=== PATIENT | male | born 1960 | race Caucasian/White ===

== ENCOUNTER → 2017-04-12 | Outpatient (CLI) | payer OTHER ==
[~2017-04-12] MED LIST: BACL10TA PO; DULO60CA6 PO; GABA800T2 PO; HYDR-2762 PO; MELO15TA23 PO; OMEP20CA9 PO; TRAM50TA PO
--- NOTE | 2017-04-12 18:03 | PAIN ---
DATE OF SERVICE: 04/12/2017 PROGRESS NOTE FOR PAIN CLINIC DIAGNOSIS: Chronic lumbar radiculopathy with post-lumbar laminectomy syndrome. HISTORY OF PRESENT ILLNESS: The patient is a 56-year-old male who returns for followup, last seen in 2010. The patient has a spinal cord stimulator, which was placed here in 2009. The patient has done very well with excellent coverage of stimulation in his low back and bilateral lower extremities, but the bench lathe operator battery is reaching its last charging abilities and having difficulty charging it. It is not holding the charge more than a day or so. We contacted the [employer] event marketing representative and she met him here as well today with some interrogation techniques with the stimulator ____ nearing its battery life expectancy. The patient reports he is still having some pain, but it is a 5 on a scale of 10 and at least 8 on a scale of 10. It is worse with walking and standing, change in positions. It is aching, sharp, dull, shooting, cramping, burning and tingling. It can be severe, but it is on and off. I again coverage with the stimulator by about 70% improvement with the stimulator on. The patient reports no new motor or sensory deficits, no new bowel or bladder incontinence or other complaints. PHYSICAL EXAMINATION: VITAL SIGNS: Today, his blood pressure is 141/68, pulse 76, respirations 18, temperature is 98.3 degrees Fahrenheit. Height is 5 feet 10 inches. GENERAL: The patient is awake, alert, oriented, appropriate, very pleasant demeanor. HEENT: Shows normocephalic, atraumatic. Extraocular movements are intact and symmetrical. The patient wears eye glasses. Oral cavity, mucous membranes are moist and pink. Dentition is intact. NECK: Shows anterior throat supple without palpable lymphadenopathy noted. Swallow reflex is symmetrical. CHEST: Shows normal on inspection. Breath sounds are clear bilaterally. HEART: Shows S1 and S2 clear. No murmurs auscultated. ABDOMEN: Soft, nontender, nondistended. BACK: Shows spine grossly in the midline. Well-healed surgical scar is noted in the lumbar distribution, some minor flattening of lumbar lordotic curvature, but normal thoracic kyphotic curvature. The patient has easily palpable stimulator over the left low back, but above the iliac crest on the left side, which is nontender to palpation. EXTREMITIES: Lower extremities show deep tendon reflexes at 1+ in the patellar and tendo calcaneus tendons. Motor exam is 5/5 with dorsiflexion and extension, quadriceps and hamstring flexion about 4 on a scale of 5, but symmetrical. The patient is walking with a walker, which he uses at all times by his report. Options were discussed with the patient. The patient's old chart was reviewed as is his current medication regimen and updated. Current review of systems updated today as well. We will schedule the patient for a replacement of the spinal cord stimulator battery with a new updated and better technology model with more options. Per [employer] event marketing representative, we will schedule this soon and have the patient follow up at that time for replacement of the spinal cord stimulator generator. SUE MORALES MD DR: KRYSTLE/reno JOB#: [id number] / [id number]
== END | disposition home or self-care (01) ==
LOC: PNCL 11:16
PROVIDERS: ATTEND Anesthesiology
DX: M96.1 Postlaminectomy syndrome, not elsewhere classified (principal); M54.16 Radiculopathy, lumbar region
CPT/HCPCS: 99212

== ENCOUNTER 2017-05-06 10:57 | Day surgery (SDC) | payer OTHER ==
[~2017-05-06] VITALS: Ht 177.8 cm; Wt 81.6 kg
[~2017-05-06 10:57] MED LIST changes: +HYDROmorphone 2 MG/ML VIAL IV PRN; +IV RINGERS,LACTATED 1000ML 1,000 ML IV SCH; +LIDOCAINE 1% PF 2 ML VIAL. ID PRN; +MORPHINE SULFATE 2 MG/ML DISP.SYRIN. IV PRN; +ONDANSETRON PF 4 MG/2 ML VIAL. IV PRN; +PROCHLORPERAZINE 10 MG/2 ML VIAL. IV PRN; +fentaNYL PF VIAL 100 MCG/2 ML VIAL IV PRN
[2017-05-06] MEDS ORDERED: FAMOTIDINE 20 MG/2 ML VIAL ONE (11:34)
[2017-05-06] MEDS ORDERED: ONDANSETRON PF 4 MG/2 ML VIAL. ONE (11:34)
[2017-05-06] MEDS ORDERED: PROPOFOL 20 ML IV ONE (11:34)
[2017-05-06] MEDS ORDERED: LIDOCAINE 2% PF Vial for OR 5 ML VIAL. ONE (11:34)
[2017-05-06] MEDS ORDERED: fentaNYL PF VIAL 100 MCG/2 ML VIAL ONE (11:36)
[2017-05-06] MEDS ORDERED: MIDAZOLAM HCL/PF 2 MG/2 ML VIAL. ONE (11:36)
[2017-05-06] MEDS ORDERED: PROPOFOL 50 ML IV ONE (12:21)
[2017-05-06] MEDS ORDERED: LIDOCAINE 1%/EPI 1:100,000 20 ML VIAL. ONE (12:29)
[2017-05-06] MEDS ORDERED: LIDOCAINE 1% 20 ML VIAL. ONE (12:29)
[2017-05-06] MEDS ORDERED: BUPIVACAINE-EPI 0.25%-1:200000 MPF 30 ML VIAL. ONE (12:29)
[2017-05-06] MEDS ORDERED: BUPIVAC MPF-EPI 0.5%-1:200000 10 ML VIAL. ONE (12:30)
[2017-05-06] MEDS ORDERED: SUCCINYLCHOLINE 200 MG/10 ML VIAL. ONE (12:34)
[2017-05-06] MEDS ORDERED: DEXAMETHASONE SOD PHOS 20 MG/5 ML VIAL. ONE (12:47)
[2017-05-06] MEDS ORDERED: BACITRACIN 50,000 UNIT VIAL. IRR ONE (12:52)
[2017-05-06] MEDS ORDERED: 0.9 % SODIUM CHLORIDE 50 ML VIAL. IJ ONE (12:52)
[2017-05-06] MEDS ORDERED: ePHEDrine PF IN SALINE 50 MG/5 ML DISP.SYRIN IV ONE (12:57)
[2017-05-06] MEDS ORDERED: VASOPRESSIN 20 UNIT/ML VIAL. ONE (13:09)
[2017-05-06] MEDS ORDERED: DESFLURANE 31 TO 60 MINUTES IH ONE (13:16)
--- NOTE | 2017-05-06 13:34 | DISCH ---
DISCHARGE INSTRUCTIONS Condition on Discharge Condition on Discharge: Stable Activity After Discharge Activity Instructions for Disc: Activity as tolerated Lifting Instructions after Dis: No heavy lifting Driving Instructions after Dis: Do not drive today Diet after Discharge Diet after Discharge: Regular Wound Incision Care Wound/Incision Care: Reinforce dressing PRN Contacting the DR. after DC Call your doctor for: Concerns you may have SUE MORALES MD May 06, 2017 13:34
[2017-05-06] MEDS ORDERED: HYDROcodone/APAP 7.5/325MG 1 TAB TABLET PO ONE (13:45)
--- NOTE | 2017-05-06 14:22 | OP ---
DATE OF SURGERY: 05/06/2017 PROCEDURE NOTE FOR PAIN CLINIC PREOPERATIVE DIAGNOSIS: Post-laminectomy syndrome with chronic lumbar radiculopathy. POSTOPERATIVE DIAGNOSIS: Post-laminectomy syndrome with chronic lumbar radiculopathy. PROCEDURE: Spinal cord stimulator generator battery removal and replacement. ANESTHESIA: General endotracheal. ESTIMATED BLOOD LOSS: Minimal. COMPLICATIONS: None. DESCRIPTION OF PROCEDURE: The patient was consented for procedure today with the risks discussed including, but not limited to bleeding, infection, possibility of poor results regarding the new spinal cord stimulator, rejection of the stimulator as well as poor stimulator coverage and poor pain control. The patient understands and wishes to proceed. The patient was taken to operating room #1 and general anesthesia was induced with all ASA standard monitors. The patient was placed in prone position with pressure points padded and breath sounds equal bilaterally. The patient was then prepped in sterile fashion, allowing 3 minutes for the prep to dry prior to proceeding and draping, then draped in the usual fashion in a sterile fashion. The patient's back was again examined. The left low lumbar distribution was easily palpable. Spinal cord stimulator battery and well-healed surgical scar in transverse direction was again identified. Using 1% lidocaine with 1:200,000 epinephrine, local anesthetic was instilled in a transverse fashion, just inferior approximately 1 cm to the previous scar. At this time, using a 15 blade scalpel, it was incised in a transverse fashion through the area of anesthetized skin to match the incision above at approximately 7 cm. The pocket was then exposed using blunt and dull dissection and the stimulator battery generator expressed from the pocket without difficulty. Pocket was inspected. No significant hemorrhaging was noted at this time. Using the [employer] stimulator tool package and screwdriver, the old generator was removed from the leads without difficulty, with the leads intact. The new generator was then identified and inspected and the leads were placed in the same configuration front to back on the new stimulator generator. Impedance was then checked with the [employer] credit representative present and found to be all well communicated and connected with good impedance check. At this time, the leads were then tightened with the screwdriver device on the generator itself. Impedance was again checked and found to be complete and full on all leads. At this time, the pocket was re-inspected and irrigated with bacitracin irrigation x 3, re-inspected and no local hemorrhage was again noted. The new generator was then placed in the pocket with the label facing posteriorly and the spinal cord stimulator wires again placed behind the new generator as in the original configuration. At this time, the wound was then closed, the deeper fascial layer and pocket posterior wall with a 2-0 interrupted Vicryl. Skin was then closed with a 3-0 running suture of Vicryl. Sterile dressings were applied. The patient tolerated the procedure well, had no complications and was transferred to the recovery room in good stable and awake condition, where stimulator interrogation and programming was carried out without difficulty. SUE MORALES MD DR: KRYSTLE/reno JOB#: [id number] / [id number]
[2017-05-06 14:30] VITALS: BP 90/54
== END 2017-05-06 14:47 | disposition home or self-care (01) ==
LOC: SURG 10:57
PROVIDERS: ATTEND Anesthesiology
DX: M54.16 Radiculopathy, lumbar region (principal); M96.1 Postlaminectomy syndrome, not elsewhere classified; E78.00 Pure hypercholesterolemia, unspecified; M19.91 Primary osteoarthritis, unspecified site; F17.200 Nicotine dependence, unspecified, uncomplicated; Z86.69 Personal history of other diseases of the nervous system and sense organs; Z87.39 Personal history of other diseases of the musculoskeletal system and connective tissue
CPT/HCPCS: 63685; C1769; C1820; J0330; J0690; J1100; J2250; J2405; J2704; J3010; J3490; J7120; S0028; J2001

== ENCOUNTER → 2017-05-13 | Outpatient (CLI) | payer OTHER ==
[2017-05-06 14:30] VITALS: BP 90/54
[~2017-05-13] MED LIST changes: -HYDROmorphone 2 MG/ML VIAL IV PRN; -IV RINGERS,LACTATED 1000ML 1,000 ML IV SCH; -LIDOCAINE 1% PF 2 ML VIAL. ID PRN; -MORPHINE SULFATE 2 MG/ML DISP.SYRIN. IV PRN; -ONDANSETRON PF 4 MG/2 ML VIAL. IV PRN; -PROCHLORPERAZINE 10 MG/2 ML VIAL. IV PRN; -fentaNYL PF VIAL 100 MCG/2 ML VIAL IV PRN
--- NOTE | 2017-05-14 03:24 | PAIN ---
DATE OF SERVICE: 05/13/2017 PROGRESS NOTE FOR PAIN CLINIC DIAGNOSES: Chronic lumbar radiculopathy with post-lumbar laminectomy syndrome. HISTORY OF PRESENT ILLNESS: The patient is a 56-year-old male who returns for followup status post spinal cord stimulator generator change 1 week ago. The patient did very well with this. He returns today for wound check and follow up. The patient is still awaiting reprogramming and we [facility] meet him here today as scheduled for reprogramming and fine tuning of his stimulator system. The patient reports he is doing very well. No significant difficulties after the surgery, sore on the left low back and the area of the pocket, but otherwise doing fairly well. No new motor or sensory deficits. Still has some tingling, burning, cramping, aching, sharp, shooting pains and constant in the low back and bilateral lower extremities. He rates an 8 on a scale of 10 at its worst, and is 7 at its least. The patient reports no new motor or sensory deficits. No new bowel or bladder incontinence or other complaints. PHYSICAL EXAMINATION: VITAL SIGNS: Today, the patient's blood pressure is 117/81, pulse 88, respirations 18, temperature is 98.2 degrees Fahrenheit, height is 5 feet 9 inches, weight is 174 pounds. GENERAL: The patient is awake, alert, oriented, appropriate, very pleasant demeanor. HEENT: Head shows normocephalic, atraumatic. Extraocular movements are intact and symmetrical. Oral cavity: Mucous membranes moist and pink. Dentition is intact. NECK: Shows anterior throat supple without palpable lymphadenopathy noted. Swallow reflex is symmetrical. CHEST: Shows breath sounds clear to auscultation bilaterally. HEART: Shows S1 and S2 clear. ABDOMEN: Soft, nontender, nondistended. No palpable organomegaly. BACK: Shows spine grossly in the midline. Well-healed surgical scar in the midline as well as bandaged scar on the left low back and posterior flank. With removal of the bandages shows Steri-Strips intact with good wound healing in process 1 week postop with some very mild erythema just around the edges of the incision itself consistent with 1-week postop findings. No erythematous findings. Other than this, no streaking, no significant tenderness with palpation over the generator and the pocket. No exudate or drainage. Options were discussed with the patient and the patient's old chart was reviewed as his current medication regimen and updated. Current review of systems updated today as well. We will have the patient follow up again in about 3-week period or sooner if necessary. We will maintain keeping the dressing dry. Steri-Strips will be allowed to come off on their own as instructed. The patient will be able to have the it programmer analyst retune and program today with our [facility] dealer compliance representative and follow up as scheduled in approximately 3 weeks to 4 weeks for second wound check or sooner if necessary. SUE MORALES MD DR: KRYSTLE/reno JOB#: [id number] / [id number]
== END | disposition home or self-care (01) ==
LOC: PNCL 10:28
PROVIDERS: ATTEND Anesthesiology
DX: M54.16 Radiculopathy, lumbar region (principal)
CPT/HCPCS: 99212

== ENCOUNTER → 2018-11-09 | Outpatient (CLI) | payer OTHER ==
[~2018-11-09] MED LIST changes: -GABA800T2 PO; +GABA800T5 PO; -HYDR-2762 PO; +HYDR-2765 PO; +OMEP20CA10 PO; -OMEP20CA9 PO
--- NOTE | 2018-11-09 09:53 | CARD ---
MR#: [id number] Date of Study: 11/09/2018 Ordering Physician: LATRICIA KUMAR, Referring Physician: LATRICIA KUMAR, Tech: Priti Altamirano GEOVANNY APPROVED REPORT EXAM: Two-dimensional and M-mode echocardiogram with Doppler and color Doppler. Other Information Quality : AverageHR: 75bpm Rhythm : NSR INDICATION Murmur 2D DIMENSIONS RVDd2.9 (2.9-3.5cm)Left Atrium(2D)3.3 (1.6-4.0cm) IVSd1.1 (0.7-1.1cm)Aortic Root(2D)3.0 (2.0-3.7cm) LVDd3.9 (3.9-5.9cm)LVOT Diameter1.9 (1.8-2.4cm) PWd0.9 (0.7-1.1cm)LVDs2.8 (2.5-4.0cm) FS (%) 28.6 %SV35.8 ml LVEF(%)55.8 (>50%) M-Mode DIMENSIONS Left Atrium(MM)3.34 (2.5-4.0cm)Aortic Root3.14 (2.2-3.7cm) Aortic Valve AoV Peak Terrance.117.6cm/sAoV VTI20.6cm AO Peak GR.5.5mmHgLVOT Peak Terrance.95.0cm/s AO Mean GR.2mmHgAVA (VMAX)2.36cm2 HANNAH (VTI)2.40cm2 Mitral Valve MV E Wuczsnps46.5cm/sMV DECEL IHVQ149jb MV A Lflvodet86.8cm/sE/A Ratio0.9 MV A Aspmktcx792ns Pulmonary Valve PV Peak Arbjbwyw99.1cm/s Tricuspid Valve TR P. Ifzybtwr679dl/sRAP WUVCZLZK5leMv TR Peak Gr.49rqLwIJGO88ibMb Pulmonary Vein S1 Ljcrfddi27.0cm/sD2 Kzsvandj80.0cm/s PVa khkyaxpe388cese LEFT VENTRICLE The left ventricle is normal size. There is borderline concentric left ventricular hypertrophy. The l eft ventricular systolic function is normal. The Ejection Fraction is 55-60%. There is normal LV segm ental wall motion. Transmitral Doppler flow pattern is Grade I-abnormal relaxation pattern. RIGHT VENTRICLE The right ventricle is normal size. There is normal right ventricular wall thickness. The right ventr icular systolic function is normal. ATRIA The left atrium size is normal. The right atrium size is normal. The interatrial septum is intact wit h no evidence for an atrial septal defect or patent foramen ovale as noted on 2-D or Doppler imaging. AORTIC VALVE The aortic valve is mildly calcified. The aortic valve is trileaflet. Doppler and Color Flow revealed no significant aortic regurgitation. There is no significant aortic valvular stenosis. MITRAL VALVE The mitral valve is thickened but opens well. There is no evidence of mitral valve prolapse. There is no mitral valve stenosis. Doppler and Color Flow revealed no mitral valve regurgitation noted. TRICUSPID VALVE The tricuspid valve is normal in structure and function. Doppler and Color Flow revealed trace tricus pid regurgitation. The PA pressure was estimated at 26 mmHg. There is no tricuspid valve prolapse or vegetation. There is no tricuspid valve stenosis. PULMONIC VALVE The pulmonic valve is not well visualized. GREAT VESSELS The aortic root is normal in size. The ascending aorta is normal in size. The IVC is normal in size a nd collapses >50% with inspiration. PERICARDIAL EFFUSION There is no evidence of significant pericardial effusion. Critical Notification Critical Value: No <Conclusion> The left ventricular systolic function is normal. The Ejection Fraction is 55-60%. There is normal LV segmental wall motion. Transmitral Doppler flow pattern is Grade I-abnormal relaxation pattern. Trace tricuspid regurgitation. The PA pressure was estimated at 26 mmHg. There is no evidence of significant pericardial effusion. Signed by : Luis Miguel Bowman, Electronically Approved : 11/09/2018 09:52:47
== END | disposition home or self-care (01) ==
LOC: ECHO 07:53
PROVIDERS: ATTEND Family Medicine
DX: I51.7 Cardiomegaly (principal)
CPT/HCPCS: 93306

== ENCOUNTER → 2021-07-21 | Outpatient (CLI) | payer BC ==
[~2021-07-21] MED LIST changes: -DULO60CA6 PO; +DULO60CA7 PO; -OMEP20CA10 PO; +OMEP20CA16 PO; +REGADENOSON 0.4 MG/5 ML DISP.SYRIN. IV ONE
--- NOTE | 2021-07-22 12:19 | RAD ---
MR#: [id number] Date of Study: 07/21/2021 Ordering Physician: AYLA MANZO, Referring Physician: CHASITY HENNING Tech: RT Dustin (R) (N) APPROVED REPORT Test Type: Pharmacological Stress Nurse/Tech: URIEL RICHARDS Test Indications: CHEST PAIN Cardiac History: HTN, CHEST PAIN, PAD/PVD- SEE EMR Medications: SEE MEDICATIONS Medical History: SEE EMR Resting ECG: SR Resting Heart Rate: 78 bpm Resting Blood Pressure: 131/66mmHg Pretest Chest Pain: No chest pain Nurse/Tech Notes S1,S2, LUNGS CTA, PT DENIES CHEST PAIN OR SOA, VSS. Consent: The procedure was explained to the patient in lay terms. Informed consent was witnessed. Phillip eout was entered into [employer]. History and Stress Test performed by JAN Leigh Pharm. Details Pharmacologic stress testing was performed using 0.4mg per 5ml of regadenoson given intravenously ove r 7-10 seconds. Stress Symptoms PT C/O BRIEF EPISODE OF SOA, DURING INITIAL TESTING. VSS. SYMPTOMS RESOLVED AFTER A COUPLE MINUTES, N O FURTHER COMPLAINTS. POST EXERCISE Reason for Termination: Infusion complete Max HR: 94 bpm Max Blood Pressure: 142/57mmHg Blood Pressure response to exercise: Normal blood pressure response during stress. Heart Rate response to exercise: WNL Chest Pain: No. Arrhythmia: . NO SIGNIFICANT CHANGES NOTED FROM BASELINE EKG. INTERPRETATION Stress EKG Conclusion: No evidence of stress induced EKG changes. Imaging Protocol IMAGE PROTOCOL: Rest Tc-99m/stress Tc-99m 1 day Rest: Stress: Viability: Radiopharm.Tc99m XghrznwwwAr50r Sestamibi Lkch86uMa 33mCi Duration 15min. 15min. Img Date 07/21/2021 07/21/2021 Inj-Img Whzc50oyf. 60min. Rest Admin Site:IV - Left AntecubitalAdministrator:RT Dustin (R)(N) Stress Admin Site: IV - Left AntecubitalAdministrator: JAN Leigh STRESS DATA End Diast. Vol.88.0mlAv. Heart Rate84.0bpm End Syst. Vol.19.0mlCO Index BSA0.0L/min Myocardial Kjrm035.0gEject. Fhdxtrwy21.0% Stress Rates Pk. Fill Rate3.47EDV/secLVtime Pk. Fill 106.82msec Pk. Empty Rate4.44ESV/secLVtime Pk. Ktazq316.10msec 1/3 Pk. Fill2.01EDV/sec Stress Scores Regional WT0.00Summed WT2.00 Regional WM0.00Summed WM0.00 The rest and stress images show normal perfusion, normal contraction and thickening. LV Perf. Quant 17 Seg. SSS0.00 17 Seg. SRS4.00 17 Seg. SDS0.00 Stress Defect Extent (% LAD)0.00Rest Defect Extent (% LAD)0.00Rev. Defect Extent (% LAD)0.00 Stress Defect Extent (% LCX) 0.00Rest Defect Extent (% LCX)16.30Rev. Defect Extent (% LCX)0.00 Stress Defect Extent (% RCA)0.00Rest Defect Extent (% RCA)12.20Rev. Defect Extent (% RCA)0.00 Stress Defect Extent (% ELSA)0.00Rest Defect Extent (% ELSA)5.70Rev. Defect Extent (% ELSA)0.00 Other Information Quality:Average Risk Assessment: Low Risk Conclusion 1. No evidence of EKG changes with stress testing. 2. Normal perfusion at stress/rest. 3. Subdiaphragmatic attenuation artifact noted on rest images. 4. Low risk study. 5. EF > 60%. Signed by : Bon Thompson, Electronically Approved : 07/22/2021 12:18:59
== END ==
LOC: NM 09:16
PROVIDERS: ATTEND Internal Medicine Cardiovascular Disease
DX: R06.09 Other forms of dyspnea (principal)
CPT/HCPCS: 78452; 93017; A9500; J2785